=== PATIENT | female | born 1960 | race Caucasian/White ===

== ENCOUNTER 2016-08-22 10:42 | Observation (INO) | payer SELFPAY ==
[~2016-08-22] VITALS: Ht 152.4 cm; Wt 60.0 kg
[2016-08-22] VITALS (8 sets, daily range): BP systolic 119–138; BP diastolic 58–83; PULSE 69–94; RESP 16–18; TEMP 97.6–98.1; O2SAT 96–99
[2016-08-22] MEDS ORDERED: SODIUM CHLOR 0.9% 1000 ML INJ 1,000 ML IV ONE (11:12)
[2016-08-22] MEDS: SODIUM CHLORIDE 0.9% FLUSH 10 ML FLUSH IVF PRN ×2 (11:13→12:19)
--- NOTE | 2016-08-22 11:17 | PD ---
HPI Chief Complaint: Syncope/Near-Syncope Time Seen by Provider: 11:17 Travel History International Travel<30 days: No Contact w/Intl Traveler<30days: No Traveled to known affect area: No History of Present Illness HPI 56-year-old female with no significant history presents to the emergency department for evaluation following a syncopal episode. Patient states that she was standing singing at [employer] when she collapsed. The patient did not feel lightheaded or dizzy prior to her collapse. This was witnessed. The patient recalls waking up on the ground. She is uncertain if she struck her head. She states nothing like this has ever happened her in the past. She states her morning routine was normal and she did eat breakfast prior to discharge. She has not taken any new medications. She does take vitamin and supplements. She denies a chest x-ray or tightness. She has had no difficulty breathing. No recent illnesses, fever, or chills. Patient has no other focal deficits or weakness. Patient does report feeling very tired at this time. There was no loss of bowel or bladder during the incident. The patient did not bite her tongue. Witnesses did not report seizure-like activity. No other symptoms to report. PFSH Past Medical History Medical History: Denies Significant Hx Diminished Hearing: No Genitourinary: Yes (UTI) Tetanus Vaccination: > 5 Years Influenza Vaccination: No ?: Not Menopausal: Yes Past Surgical History Abdominal Surgery: Yes Appendectomy: Yes Social History Alcohol Use: Yes (RARE) Tobacco Use: No Substance Use: No Allergies-Medications (Allergen,Severity, Reaction): Coded Allergies: No Known Allergies (Unverified , 08/22/16) Reported Meds & Prescriptions Reported Meds & Active Scripts Active No Active Prescriptions or Reported Medications Review of Systems Except as stated in HPI: all other systems reviewed are Neg Physical Exam Narrative GENERAL: Well-nourished female patient, tearful but in no acute distress SKIN: Focused skin assessment warm/dry. HEAD: Atraumatic. Normocephalic. EYES: Pupils equal and round. No scleral icterus. No injection or drainage. ENT: No nasal bleeding or discharge. Mucous membranes pink and moist. NECK: Trachea midline. No JVD. CARDIOVASCULAR: Regular rate and rhythm. No murmur appreciated. RESPIRATORY: No accessory muscle use. Clear to auscultation. Breath sounds equal bilaterally. GASTROINTESTINAL: Abdomen soft, non-tender, nondistended. Hepatic and splenic margins not palpable. MUSCULOSKELETAL: No obvious deformities. No clubbing. No cyanosis. No edema. NEUROLOGICAL: Awake and alert. No obvious cranial nerve deficits. Motor grossly within normal limits. Normal speech. PSYCHIATRIC: Appropriate mood and affect; insight and judgment normal. Data Data Last Documented VS Vital Signs Date Time Temp Pulse Resp B/P Pulse Ox O2 Delivery O2 Flow Rate FiO2 08/22/16 12:11 94 16 124/67 99 Room Air 08/22/16 10:47 98.1 Orders Electrocardiogram (08/22/16 11:12) Complete Blood Count With Diff (08/22/16 11:12) Comprehensive Metabolic Panel (08/22/16 11:12) Magnesium (Mg) (08/22/16 11:12) Ckmb (Isoenzyme) Profile (08/22/16 11:12) Troponin I (08/22/16 11:12) Act Partial Throm Time (Ptt) (08/22/16 11:12) Prothrombin Time / Inr (Pt) (08/22/16 11:12) Urinalysis - C+S If Indicated (08/22/16 11:12) Chest, Single Ap (08/22/16 11:12) Ct Brain W/O Iv Contrast(Rout) (08/22/16 11:12) Ecg Monitoring (08/22/16 11:12) Iv Access Insert/Monitor (08/22/16 11:12) Oximetry (08/22/16 11:12) Sodium Chloride 0.9% Flush (Ns Flush) (08/22/16 11:15) Sodium Chlor 0.9% 1000 Ml Inj (Ns 1000 M (08/22/16 11:12) Orthostatic Vital Signs (08/22/16 11:12) Admit Order (Ed Use Only) (08/22/16 13:44) Labs Laboratory Tests Test 08/22/16 08/22/16 11:25 12:37 White Blood Count 6.6 TH/MM3 Red Blood Count 4.82 MIL/MM3 Hemoglobin 15.0 GM/DL Hematocrit 43.8 % Mean Corpuscular Volume 90.9 FL Mean Corpuscular Hemoglobin 31.1 PG Mean Corpuscular Hemoglobin 34.2 % Concent Red Cell Distribution Width 13.1 % Platelet Count 201 TH/MM3 Mean Platelet Volume 10.0 FL Neutrophils (%) (Auto) 68.7 % Lymphocytes (%) (Auto) 22.6 % Monocytes (%) (Auto) 7.3 % Eosinophils (%) (Auto) 1.2 % Basophils (%) (Auto) 0.2 % Neutrophils # (Auto) 4.6 TH/MM3 Lymphocytes # (Auto) 1.5 TH/MM3 Monocytes # (Auto) 0.5 TH/MM3 Eosinophils # (Auto) 0.1 TH/MM3 Basophils # (Auto) 0.0 TH/MM3 CBC Comment DIFF FINAL Differential Comment Prothrombin Time 10.7 SEC Prothromb Time International 1.0 RATIO Ratio Activated Partial 24.0 SEC Thromboplast Time Sodium Level 142 MEQ/L Potassium Level 3.9 MEQ/L Chloride Level 104 MEQ/L Carbon Dioxide Level 28.3 MEQ/L Anion Gap 10 MEQ/L Blood Urea Nitrogen 15 MG/DL Creatinine 0.67 MG/DL Estimat Glomerular Filtration 90 ML/MIN Rate Random Glucose 93 MG/DL Calcium Level 9.5 MG/DL Magnesium Level 2.1 MG/DL Total Bilirubin 0.3 MG/DL Aspartate Amino Transf 17 U/L (AST/SGOT) Alanine Aminotransferase 30 U/L (ALT/SGPT) Alkaline Phosphatase 127 U/L Total Creatine Kinase 62 U/L Troponin I LESS THAN 0.02 NG/ML Total Protein 7.3 GM/DL Albumin 3.8 GM/DL Urine Color LIGHT-YELLOW Urine Turbidity CLEAR Urine pH 7.0 Urine Specific [place] 1.007 Urine Protein NEG mg/dL Urine Glucose (UA) NEG mg/dL Urine Ketones NEG mg/dL Urine Occult Blood NEG Urine Nitrite NEG Urine Bilirubin NEG Urine Urobilinogen LESS THAN 2.0 MG/DL Urine Leukocyte Esterase NEG Urine Squamous Epithelial 0-5 /hpf Cells Microscopic Urinalysis Comment CULT NOT INDICATED MDM Medical Decision Making Medical Screen Exam Complete: Yes Emergency Medical Condition: Yes Medical Record Reviewed: Yes Differential Diagnosis Syncope versus near-syncope versus electrolyte abnormality versus cardiac etiology versus intracranial etiology versus UTI versus vasovagal response versus seizure Narrative Course 56-year-old female presents to the the emergency department for evaluation following a syncopal episode. Patient has no obvious trauma. Patient does not recall the fall but does remember waking up on the ground. She has no focal deficits at this time. She does report feeling very tired. EKG is normal sinus rhythm without any ectopy noted. Vital signs are stable. Chest x-ray and head CT are without any abnormality identified. CBC and CMP are without acute concern. Troponin is less than 0.02. Urine is unremarkable. I discussed the patient with my attending physician Dr. Krishnan. She agrees that it is in the best interests of the patient to be omitted observation for further evaluation and syncopal workup. Plan is discussed with the patient and family members at bedside. She agrees with this plan of care. [facility] I spoke with Dr. Quezada. Pt will be admitted observation to [facility] Diagnosis Primary Impression: Syncope Qualified Code: R55 - Syncope, unspecified syncope type Admitting Information Admitting Physician Requests: Observation Scripts No Active Prescriptions or Reported Meds Condition: Stable Meli Parr Aug 22, 2016 11:17
[2016-08-22 11:35] LABS: AUTOMATED NEUTROPHIL # 4.6 TH/MM3 (1.8-7.7); BASOPHIL % 0.2 % (0.0-2.0); EOSINOPHIL # 0.1 TH/MM3 (0-0.4); EOSINOPHIL % 1.2 % (0.0-4.0); HEMATOCRIT 43.8 % (35.0-46.0); HEMO FLAGS DIFF FINAL; LYMPH % 22.6 % (9.0-44.0); LYMPHOCYTE # 1.5 TH/MM3 (1.0-4.8); MEAN CELL VOLUME 90.9 FL (80.0-100.0); MEAN CORPUSCULAR HEMOGLOBIN 31.1 PG (27.0-34.0); MEAN CORPUSCULAR HGB CONC 34.2 % (32.0-36.0); MONO % 7.3 % (0.0-8.0); NEUT % 68.7 % (16.0-70.0); PLATELET COUNT 201 TH/MM3 (150-450); RED BLOOD COUNT 4.82 MIL/MM3 (4.00-5.30); RED CELL DISTRIBUTION WIDTH 13.1 % (11.6-17.2); WHITE BLOOD COUNT 6.6 TH/MM3 (4.0-11.0)
[2016-08-22 11:53] LABS: ALT (GPT) 30 U/L (10-53); ANION GAP 10 MEQ/L (5-15); AST (GOT) 17 U/L (15-37); BICARBONATE 28.3 MEQ/L (21.0-32.0); BLOOD UREA NITROGEN 15 MG/DL (7-18); CHLORIDE 104 MEQ/L (98-107); GLOMERULAR FILTRATION RATE 90 ML/MIN (>89); MAGNESIUM 2.1 MG/DL (1.5-2.5); POTASSIUM 3.9 MEQ/L (3.5-5.1); SODIUM (NA) 142 MEQ/L (136-145)
--- NOTE | 2016-08-22 11:53 | RADRPT ---
EXAM DATE/TIME: 08/22/2016 11:31 [facility] COMPARISON: No previous studies available for comparison. INDICATIONS : Syncopal episode. MEDICAL HISTORY : None. SURGICAL HISTORY : None. ENCOUNTER: Initial ACUITY: 1 day PAIN SCORE: 0/10 LOCATION: Bilateral chest FINDINGS: A single view of the chest demonstrates the lungs to be symmetrically aerated without evidence of mas s, infiltrate or effusion. The cardiomediastinal contours are unremarkable. Osseous structures are intact. CONCLUSION: Normal examination. Logan Johnson Jr., MD on August 22, 2016 at 11:51 Board Certified Radiologist. This report was verified electronically.
[2016-08-22 11:57] LABS: PROTHROMBIN TIME - PATIENT 10.7 SEC (9.8-11.6)
[2016-08-22 11:58] LABS: ALKALINE PHOSPHATASE 127 U/L (45-117); TOTAL BILIRUBIN ADULT 0.3 MG/DL (0.2-1.0)
[2016-08-22 12:11] LABS: CREATINE KINASE 62 U/L (26-192)
--- NOTE | 2016-08-22 12:26 | RADRPT ---
EXAM DATE/TIME: 08/22/2016 11:44 [facility] COMPARISON: No previous studies available for comparison. INDICATIONS : Passed out at [employer], feels weak. RADIATION DOSE: 30.14 CTDIvol (mGy) MEDICAL HISTORY : None SURGICAL HISTORY : None. ENCOUNTER: Initial ACUITY: 1 day PAIN SCALE: 0/10 LOCATION: cranial TECHNIQUE: Multiple contiguous axial images were obtained of the head. Using automated exposure control and adj ustment of the mA and/or kV according to patient size, radiation dose was kept as low as reasonably a chievable to obtain optimal diagnostic quality images. FINDINGS: CEREBRUM: The ventricles are normal for age. No evidence of midline shift, mass lesion, hemorrhage or acute in farction. No extra-axial fluid collections are seen. POSTERIOR FOSSA: The cerebellum and brainstem are intact. The 4th ventricle is midline. The cerebellopontine angle i s unremarkable. EXTRACRANIAL: The visualized portion of the orbits is intact. SKULL: The calvaria is intact. No evidence of skull fracture. CONCLUSION: No acute intracranial findings. Sushil Fleming MD on August 22, 2016 at 12:21 Board Certified Radiologist. This report was verified electronically.
[2016-08-22 12:50] LABS: BLOOD, URINE NEG (NEG); GLUCOSE,URINE NEG (NEG); KETONE, URINE NEG (NEG); NITRITE,URINE NEG (NEG); URINE COLOR LIGHT-YELLOW (YELLW/STRAW)
[2016-08-22 13:22] LABS: CULTURE IF INDICATED CULT NOT INDICATED
[2016-08-22 13:23] LABS: COMMENT (UR) CULT NOT INDICATED; COMMENT2 (UR) CULT NOT INDICATED; SQUAMOUS EPITHELIAL CELL URINE 0-5 /hpf (0-5)
[2016-08-22] MEDS ORDERED: NALOXONE HCL 0.4 MG/ML AMP IV PRN (13:45)
[2016-08-22] MEDS ORDERED: LACTULOSE SYRUP 20 GM/30 ML CUP PO PRN (13:45)
[2016-08-22] MEDS ORDERED: SENNOSIDES 8.6 MG TAB PO PRN (13:45)
[2016-08-22] MEDS ORDERED: MAGNESIUM HYDROXIDE SUSP 30 ML CUP PO PRN (13:45)
[2016-08-22] MEDS ORDERED: ONDANSETRON HCL 4 MG/2 ML VIAL IVP PRN (13:45)
[2016-08-22] MEDS ORDERED: BISACODYL 10 MG SUPP RECTAL PRN (13:45)
[2016-08-22] MEDS ORDERED: SODIUM CHLORIDE 0.9% FLUSH 10 ML FLUSH IV FLUSH PRN (13:45)
--- NOTE | 2016-08-22 14:12 | HHI.HP ---
HPI Service [facility] Primary Care Physician Non-Staff Admission Diagnosis syncope Diagnoses: Chief Complaint: Syncope Travel History International Travel<30 Days: No Contact w/Intl Traveler <30 Da: No Traveled to Known Affected Are: No History of Present Illness Written by Yan Mars, acting as scribe for Dr. Quezada on 08/22/16 at 14:01. 56-year-old female with no significant past medical history presented after syncopal episode. The patient states that she was standing up singing in [employer] and then had a syncopal episode. She states that when she stood up she denies any dizziness. She states she was standing for a minute or 2 before the episode happened. She denies any episodes like this before. Otherwise she has been in her normal state of health and has no acute complaints at this time. She feels well and would actually like to go home. She denies any chest pain, shortness breath, fever, chills, cough, recent illness, vomiting, diarrhea. Review of Systems Except as stated in HPI: all other systems reviewed are Neg Past Family Social History Past Medical History None Past Surgical History Appendectomy at age 3 Reported Medications None Allergies: Coded Allergies: No Known Allergies (Unverified , 08/22/16) Active Ordered Medications Current Medications Medications (Trade) Dose Ordered Sig/Monty Route Start Time Stop Time Status Last Admin (NS 1000 ml Inj) 1,000 ml @ 100 mls/hr Q10H IV 08/22/16 14:00 (NS Flush) 2 ml UNSCH PRN IV FLUSH 08/22/16 13:45 (NS Flush) 2 ml BID IV FLUSH 08/22/16 21:00 (Zofran Inj) 4 mg Q6H PRN IVP 08/22/16 13:45 (Narcan Inj) 0.4 mg UNSCH PRN IV 08/22/16 13:45 (Yasmin-Colace) 1 tab BID PO 08/22/16 21:00 (Milk Of Magnesia Liq) 30 ml Q12H PRN PO 08/22/16 13:45 (Senokot) 17.2 mg Q12H PRN PO 08/22/16 13:45 (Dulcolax Supp) 10 mg DAILY PRN RECTAL 08/22/16 13:45 (Lactulose Liq) 30 ml DAILY PRN PO 08/22/16 13:45 Family History Mother and father had diabetes Social History Denies any tobacco use Occasional wine Physical Exam Vital Signs Vital Signs Date Time Temp Pulse Resp B/P Pulse Ox O2 Delivery O2 Flow Rate FiO2 08/22/16 12:11 94 16 124/67 99 Room Air 08/22/16 11:13 17 98 Room Air 08/22/16 11:13 80 17 120/59 82 17 119/59 77 17 130/64 08/22/16 10:51 96 Room Air 08/22/16 10:47 98.1 75 16 138/83 Physical Exam GENERAL: Well-developed well-nourished. In no acute distress. SKIN: Warm and dry. No lesions noted. HEENT: Normocephalic. Pupils equal and round. Mucous membranes pink and moist. CARDIOVASCULAR: Regular rate and rhythm. No murmur appreciated. RESPIRATORY: No accessory muscle use. Clear to auscultation. Breath sounds equal bilaterally. GASTROINTESTINAL: Abdomen soft, non-tender, nondistended. Bowel sounds x4. MUSCULOSKELETAL: No obvious deformities. No clubbing or cyanosis. No edema. NEUROLOGICAL: Awake and alert. No focal neurological deficits. Moves upper and lower extremities spontaneously. Normal speech. PSYCHIATRIC: Appropriate mood and affect; insight and judgment normal. Laboratory Laboratory Tests Test 08/22/16 08/22/16 11:25 12:37 White Blood Count 6.6 Red Blood Count 4.82 Hemoglobin 15.0 Hematocrit 43.8 Mean Corpuscular Volume 90.9 Mean Corpuscular Hemoglobin 31.1 Mean Corpuscular Hemoglobin 34.2 Concent Red Cell Distribution Width 13.1 Platelet Count 201 Mean Platelet Volume 10.0 Neutrophils (%) (Auto) 68.7 Lymphocytes (%) (Auto) 22.6 Monocytes (%) (Auto) 7.3 Eosinophils (%) (Auto) 1.2 Basophils (%) (Auto) 0.2 Neutrophils # (Auto) 4.6 Lymphocytes # (Auto) 1.5 Monocytes # (Auto) 0.5 Eosinophils # (Auto) 0.1 Basophils # (Auto) 0.0 CBC Comment DIFF FINAL Differential Comment Prothrombin Time 10.7 Prothromb Time International 1.0 Ratio Activated Partial 24.0 Thromboplast Time Sodium Level 142 Potassium Level 3.9 Chloride Level 104 Carbon Dioxide Level 28.3 Anion Gap 10 Blood Urea Nitrogen 15 Creatinine 0.67 Estimat Glomerular Filtration 90 Rate Random Glucose 93 Calcium Level 9.5 Magnesium Level 2.1 Total Bilirubin 0.3 Aspartate Amino Transf 17 (AST/SGOT) Alanine Aminotransferase 30 (ALT/SGPT) Alkaline Phosphatase 127 Total Creatine Kinase 62 Troponin I LESS THAN 0.02 Total Protein 7.3 Albumin 3.8 Urine Color LIGHT-YELLOW Urine Turbidity CLEAR Urine pH 7.0 Urine Specific [place] 1.007 Urine Protein NEG Urine Glucose (UA) NEG Urine Ketones NEG Urine Occult Blood NEG Urine Nitrite NEG Urine Bilirubin NEG Urine Urobilinogen LESS THAN 2.0 Urine Leukocyte Esterase NEG Urine Squamous Epithelial 0-5 Cells Microscopic Urinalysis Comment CULT NOT INDICATED Result Diagram: 08/22/16 1125 08/22/16 1125 Imaging Last Impressions Head CT 08/22/16 1112 Signed Impressions: Service Date/Time: Monday, August 22, 2016 11:44 - CONCLUSION: No acute intracranial findings. Sushil Fleming MD Chest X-Ray 08/22/16 1112 Signed Impressions: Service Date/Time: Monday, August 22, 2016 11:31 - CONCLUSION: Normal examination. Logan Johnson Jr., MD Assessment and Plan Assessment and Plan 56-year-old female with no significant past medical history presented after syncopal episode Syncope: Suspect vasovagal. Negative for concerning risk factors. Reviewed: Head CT with no acute process. Chest x-ray clear. Labs and troponins essentially within normal limits. -Check carotid ultrasound -Monitor on telemetry -IVF DVT prophylaxis: SCDs This note was transcribed by kellie [Yan Mars]. I, Dr. Rodolfo Quezada personally performed the history, physical exam, and medical decision making; and confirmed the accuracy of the information in the transcribed note. Authenticated by Dr. Rodolfo Quezada on 08/22/16 at 14:25. Discussed Condition With Patient with family at bedside, ED staff Yan Mars Aug 22, 2016 14:12 Rodolfo Quezada MD Aug 22, 2016 14:25
[2016-08-22] MEDS: SODIUM CHLOR 0.9% 1000 ML INJ 1,000 ML IV SCH (14:14)
--- NOTE | 2016-08-22 16:52 | RADRPT ---
EXAM DATE/TIME: 08/22/2016 16:05 [facility] COMPARISON: No previous studies available for comparison. INDICATIONS : Syncope. MEDICAL HISTORY : UTI. Syncope. SURGICAL HISTORY : Appendectomy. ENCOUNTER: Initial ACUITY: 1 day PAIN SCORE: 0/10 LOCATION: Bilateral neck PEAK SYSTOLIC VELOCITIES (cm/sec): ICA/CCA RATIO: Right: 1.1 Left: 1.1 ICA: Right: 113 Left: 115 CCA: Right: 104 Left: 100 ECA: Right: 61 Left: 65 VERTEBRAL: Right: 48 antegrade Left: 41 antegrade Elevated flow velocities and ICA/CCA ratios have been found to correlate with increased degrees of vessel stenosis, calculated as percentage of diameter relative to a normal segment of distal ICA/CCA FINDINGS: RIGHT CAROTID: No significant stenosis is visualized. Mild scattered plaque. The waveforms are within normal limits . LEFT CAROTID: No significant stenosis is visualized. Mild scattered plaque. The waveforms are within normal limits . VERTEBRAL ARTERIES: Antegrade flow is seen in both vertebral arteries. MISCELLANEOUS: None. CONCLUSION: No hemodynamically significant stenosis in either carotid artery. Darin Zapien MD on August 22, 2016 at 16:50 Board Certified Radiologist. This report was verified electronically.
[2016-08-22] MEDS: SODIUM CHLORIDE 0.9% FLUSH 10 ML FLUSH IV FLUSH SCH (21:00)
[2016-08-22] MEDS: DOCUSATE SODIUM 50 MG/SENNA 8.6 MG TAB PO SCH (21:00)
[2016-08-23] MEDS: SODIUM CHLOR 0.9% 1000 ML INJ 1,000 ML IV SCH
[2016-08-23 00:30] VITALS: BP 102/49; PULSE 89; RESP 18; TEMP 98.1; O2SAT 95
[2016-08-23 03:34] VITALS: BP 99/54; PULSE 82; RESP 18; TEMP 97.9; O2SAT 96
[2016-08-23 05:57] LABS: BASOPHIL % 0.3 % (0.0-2.0); EOSINOPHIL # 0.1 TH/MM3 (0-0.4); EOSINOPHIL % 2.3 % (0.0-4.0); HEMATOCRIT 39.4 % (35.0-46.0); HEMO FLAGS DIFF FINAL; LYMPH % 25.6 % (9.0-44.0); LYMPHOCYTE # 1.6 TH/MM3 (1.0-4.8); MEAN CELL VOLUME 92.8 FL (80.0-100.0); MEAN CORPUSCULAR HGB CONC 33.4 % (32.0-36.0); MONO % 8.8 % (0.0-8.0); PLATELET COUNT 173 TH/MM3 (150-450); RED BLOOD COUNT 4.25 MIL/MM3 (4.00-5.30); RED CELL DISTRIBUTION WIDTH 13.4 % (11.6-17.2); WHITE BLOOD COUNT 6.3 TH/MM3 (4.0-11.0)
[2016-08-23 06:31] LABS: BICARBONATE 27.7 MEQ/L (21.0-32.0); POTASSIUM 4.2 MEQ/L (3.5-5.1)
--- NOTE | 2016-08-23 08:11 | HHI.DCPOC ---
Discharge Care Plan Diagnosis: (1) Syncope Goals to Promote Your Health * To prevent worsening of your condition and complications * To maintain your health at the optimal level Directions to Meet Your Goals Take your medications as prescribed Follow your dietary instruction Follow activity as directed Keep your appointments as scheduled Take your immunizations and boosters as scheduled If your symptoms worsen call your PCP, if no PCP go to Urgent Care Center or Emergency Room Smoking is Dangerous to Your Health. Avoid second hand smoke Call the 24-hour hour crisis hotline for domestic abuse at Evelyn Perez PA-C Aug 23, 2016 8:11 am
--- NOTE | 2016-08-23 08:19 | HHI.PR ---
Subjective Remarks Follow up for syncope. The patient reports feeling well today. Denies any lightheadedness, dizziness, headache, chest pain, palpitations, or shortness of breath. The patient admits she has been under a lot of stress recently with her passing away. She states she was very emotional while at [employer]oodoo. We discussed her talking to her PCP to consider referral to psychiatry, patient agrees. Her PCP is Dr. Dany Feldman in [place], [place]. Objective Vitals Vital Signs Date Time Temp Pulse Resp B/P Pulse Ox O2 Delivery O2 Flow Rate FiO2 08/23/16 03:34 97.9 82 18 99/54 96 08/23/16 00:30 98.1 89 18 102/49 95 08/22/16 20:00 81 08/22/16 19:11 97.8 84 18 124/58 96 08/22/16 17:00 69 08/22/16 15:13 97.6 74 18 125/66 97 08/22/16 14:18 97.8 82 16 129/62 97 Room Air 08/22/16 12:11 94 16 124/67 99 Room Air 08/22/16 11:13 17 98 Room Air 08/22/16 11:13 80 17 120/59 82 17 119/59 77 17 130/64 08/22/16 10:51 96 Room Air 08/22/16 10:47 98.1 75 16 138/83 I/O 08/22/16 08/22/16 08/22/16 08/23/16 08/23/16 08/23/16 07:00 15:00 23:00 07:00 15:00 23:00 Intake Total 240 ml 792 ml Balance 240 ml 792 ml Intake Oral 240 ml IV Total 792 ml # Voids 1 1 # Bowel Movements 0 Result Diagram: 08/23/16 0517 08/23/16 0517 Imaging Last Impressions Head CT 08/22/16 1112 Signed Impressions: Service Date/Time: Monday, August 22, 2016 11:44 - CONCLUSION: No acute intracranial findings. Sushil Fleming MD Chest X-Ray 08/22/16 1112 Signed Impressions: Service Date/Time: Monday, August 22, 2016 11:31 - CONCLUSION: Normal examination. Logan Johnson Jr., MD Carotid Artery Ultrasound 08/22/16 0000 Signed Impressions: Service Date/Time: Monday, August 22, 2016 16:05 - CONCLUSION: No hemodynamically significant stenosis in either carotid artery. Darin Zapien MD Objective Remarks GENERAL: Well-nourished, well-developed pleasant middle aged female patient in [facility]. SKIN: Warm and dry. No rash. HEENT: Normocephalic. Atraumatic.Pupils equal and round. Mucous membranes pink and moist. NECK: Supple. Trachea midline. CARDIOVASCULAR: Regular rate and rhythm. S1, S2 noted. No murmur appreciated. RESPIRATORY: No accessory muscle use. Clear to auscultation. Breath sounds equal bilaterally. GASTROINTESTINAL: Abdomen soft, non-tender, nondistended. Normoactive bowel sounds x4. MUSCULOSKELETAL: No obvious deformities. Extremities without clubbing, cyanosis , or edema. NEUROLOGICAL: Awake and alert. No obvious cranial nerve deficits. Motor grossly within normal limits. Normal speech. PSYCHIATRIC: Appropriate mood and affect; insight and judgment normal. Medications and IVs Current Medications Medications (Trade) Dose Ordered Sig/Monty Route Start Time Stop Time Status Last Admin (NS 1000 ml Inj) 1,000 ml @ 100 mls/hr Q10H IV 08/22/16 14:00 08/23/16 00:00 (NS Flush) 2 ml UNSCH PRN IV FLUSH 08/22/16 13:45 (NS Flush) 2 ml BID IV FLUSH 08/22/16 21:00 (Zofran Inj) 4 mg Q6H PRN IVP 08/22/16 13:45 (Narcan Inj) 0.4 mg UNSCH PRN IV 08/22/16 13:45 (Yasmin-Colace) 1 tab BID PO 08/22/16 21:00 (Milk Of Magnesia Liq) 30 ml Q12H PRN PO 08/22/16 13:45 (Senokot) 17.2 mg Q12H PRN PO 08/22/16 13:45 (Dulcolax Supp) 10 mg DAILY PRN RECTAL 08/22/16 13:45 (Lactulose Liq) 30 ml DAILY PRN PO 08/22/16 13:45 A/P Problem List: (1) Syncope ICD Code: R55 Status: Acute Assessment and Plan 56-year-old female with no significant past medical history presented after syncopal episode Syncope: Suspect vasovagal, 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 Negative for concerning risk factors. -Head CT images reviewed, no acute findings. -CXR clear. -Labs and troponins essentially within normal limits. -Carotid ultrasound with no significant stenosis -EKG with sinus rhythm, telemetry monitoring reviewed and unremarkable. -orthostatics negative -Given IVF -no further events, symptoms resolved, f/up with PCP Dr. Dany Feldman DVT prophylaxis: SCDs Discharge Planning Discharge patient to home Condition on discharge: Improved Regular Diet as tolerated Ad Edilia activity Rx written: none. Follow-up with primary care physician Dr. Dany Feldman within 1 week Problem Qualifiers (1) Syncope: Qualified Code: R55 - Syncope, unspecified syncope type Evelyn Perez PA-C Aug 23, 2016 8:18 am
[2016-08-23 08:43] VITALS: BP 105/60; PULSE 72; RESP 16; TEMP 98.8; O2SAT 91
[2016-08-23] MEDS: DOCUSATE SODIUM 50 MG/SENNA 8.6 MG TAB PO SCH (08:52)
[2016-08-23] MEDS: SODIUM CHLORIDE 0.9% FLUSH 10 ML FLUSH IV FLUSH SCH (08:52)
--- NOTE | 2016-08-23 10:58 | EKG ---
Date Performed: 08/22/2016 Time Performed: 10:58:05 PTAGE: 56 years EKG: Sinus rhythm NORMAL ECG NO PREVIOUS TRACING DOCTOR: Abebe Glez Interpretating Date/Time 08/23/2016 10:57:46
== END 2016-08-23 10:12 | disposition home or self-care (01) ==
LOC: NEPC 10:42 → NEDA 13:45 → NEPHCDU 14:59
PROVIDERS: ADMIT Hospitalist; ATTEND Hospitalist
DX: R55 Syncope and collapse (principal); Z87.440 Personal history of urinary (tract) infections
CPT/HCPCS: 70450; 71010; 80048; 80053; 81001; 82550; 83735; 84484; 85025; 85610; 85730; 93005; 93880; 96360; 99285; G0378; J7030